=== PATIENT | male | born 1945 | race Caucasian/White ===

== ENCOUNTER 2019-03-28 09:19 | Day surgery (SDC) | payer MEDICARE, OTHER ==
[2019-03-27 16:03] LABS: BASOPHILS % (AUTO) 0.3 % (0-1); EOSINOPHILS # (AUTO) 0.1 X10'3 (0-0.9); EOSINOPHILS % (AUTO) 0.7 % (0-6); HEMATOCRIT 35.2 % (42.0-52.0); HEMOGLOBIN 11.7 g/dl (14.0-17.9); LYMPHOCYTES # (AUTO) 1.8 X10'3 (1.1-4.8); LYMPHOCYTES % (AUTO) 15.4 % (21-51); MEAN CORPUSCULAR HEMOGLOBIN 29.5 PG (27.0-31.0); MEAN CORPUSCULAR HGB CONC 33.2 g/dL (33.0-36.5); MEAN PLATELET VOLUME 7.6 FL (7.4-10.4); MONOCYTES # (AUTO) 0.6 X10'3 (0-0.9); MONOCYTES % (AUTO) 5.2 % (2-12); NEUTROPHILS # (AUTO) 9.1 X10'3 (1.8-7.7); NEUTROPHILS % (AUTO) 78.4 % (42-75); PLATELET COUNT 308 X10'3 (140-440); RED BLOOD COUNT 3.96 X10'6 (4.70-6.10); RED CELL DISTRIBUTION WIDTH 16.2 % (11.5-14.5); WHITE BLOOD COUNT 11.6 X10'3 (4.5-11.0)
[2019-03-27 16:08] LABS: ALBUMIN 2.9 G/DL (3.4-5.0); ANION GAP 9 (8-16); BLOOD UREA NITROGEN 27 MG/DL (7-18); BUN/CREATININE RATIO 16.9 (5.4-32.0); CALCIUM 8.7 MG/DL (8.5-10.1); CHLORIDE 106 MMOL/L (99-107); GLUCOSE 96 MG/DL (70-104); POTASSIUM 3.4 MMOL/L (3.5-5.1); SODIUM 143 MMOL/L (135-145); TOTAL CARBON DIOXIDE 28.3 MMOL/L (24-32); eGFR 43 ML/MIN
[2019-03-27 16:49] LABS: PARTIAL THROMBOPLASTIN TIME 30 SECONDS (22-32)
[~2019-03-28] VITALS: Ht 177.8 cm; Wt 89.4 kg
[2019-03-28] VITALS (11 sets, daily range): BP systolic 122–169; BP diastolic 64–88
[2019-03-28] MEDS ORDERED: WARF7.5T48 (10:15)
[2019-03-28] MEDS ORDERED: CLON-371 (10:15)
[2019-03-28] MEDS ORDERED: DILT180C53 (10:15)
[2019-03-28] MEDS ORDERED: ATOR10TA70 (10:15)
[2019-03-28] MEDS ORDERED: LISI-600 (10:15)
[2019-03-28] MEDS ORDERED: diphenhydrAMINE 25mg capsule PO PRN (10:50)
[2019-03-28] MEDS ORDERED: LORazepam 0.5 MG tablet PO PRN (10:50)
[2019-03-28] MEDS ORDERED: normal saline 1,000 ML IV SCH (10:50)
[2019-03-28] MEDS ORDERED: iohexol 350 MG/ML 50ML vial IV ONE (11:56)
[2019-03-28] MEDS ORDERED: fentaNYL/PF 50MCG/1 ML 2ML syringe ONE (11:56)
[2019-03-28] MEDS ORDERED: verapamil 2.5 mg/ml inj IV ONE (11:56)
[2019-03-28] MEDS ORDERED: iohexol 350MG/ML 100ml bottle IV ONE (11:56)
[2019-03-28] MEDS ORDERED: nitroGLYCERIN-Tridil 50MG/D5W 250 ML IV ONE (11:56)
[2019-03-28] MEDS ORDERED: heparin 1,000unit/ml 10ml vial 10 ML ONE (11:56)
[2019-03-28] MEDS ORDERED: midazolam 2 mg/2 ml injection ONE (11:56)
[2019-03-28] MEDS ORDERED: LIDOcaine 1% (10mg/ml)w/preservative injection 20ml MDV ONE (11:56)
[2019-03-28] MEDS ORDERED: sodium bicarbonate (8.4%) inj. 75 MEQ in dextrose 5%-water 500 ML IV SCH (14:05)
[2019-03-28] MEDS ORDERED: normal saline 1000ml 1,000 ML IV SCH (14:05)
[2019-03-28] MEDS ORDERED: acetylcysteine 200 MG/ml 4ml vial PO ONE (18:25)
== END 2019-03-28 19:00 | disposition home or self-care (01) ==
LOC: SSTAY O 09:19
PROVIDERS: ATTEND Internal Medicine Cardiovascular Disease
DX: I25.10 Atherosclerotic heart disease of native coronary artery without angina pectoris (principal); R53.83 Other fatigue; I99.8 Other disorder of circulatory system; I13.10 Hypertensive heart and chronic kidney disease without heart failure, with stage 1 through stage 4 chronic kidney disease, or unspecified chronic kidney disease; N18.9 Chronic kidney disease, unspecified; E78.5 Hyperlipidemia, unspecified; I35.1 Nonrheumatic aortic (valve) insufficiency
CPT/HCPCS: 36415; 80048; 85025; 85610; 85730; 93005; 93458; 93567; C1769; C1894; J1644; J2001; J2250; J3010; J7030; Q0163; Q9967; 99152; 99153; A4620; A5120; J3490